=== PATIENT | female | born 1945 | race American Indian/Alaskan Native ===

== ENCOUNTER 2017-07-27 07:18 | Day surgery (SDC) | payer MEDICARE ==
[2017-07-27] MEDS ORDERED: DIPRIVAN 10 MG/ML IV ONE (08:14)
[2017-07-27] MEDS ORDERED: XYLOCAINE MPF 2% ONE (08:30)
--- NOTE | 2017-07-27 08:57 | Anesthesia Consultation ---
Anesthesia Consult and Med Hx Date of service: 07/27/17 - Airway Anesthetic Teeth Evaluation: Poor ROM Head & Neck: Adequate Mental/Hyoid Distance: Adequate Mallampati Class: Class II Intubation Access Assessment: Probably Good - Pulmonary Exam CTA: Yes - Pre-Operative Health Status ASA Pre-Surgery Classification: ASA3 Proposed Anesthetic Plan: MAC - Pre-Anesthesia Comment Pre-Anesthesia Comments: blind - Cardiovascular System Hx Hypertension: Yes Hx Cardia Arrhythmia: Yes (HX Afib ) - Central Nervous System CVA: Yes (denies deficits ) - Gastrointestinal Hx Gastroesophageal Reflux Disease: Yes - Endocrine Hx Non-Insulin Dependent Diabetes: Yes
--- NOTE | 2017-07-27 08:57 | Anesthesia Day of Surgery ---
Anesthesia Day of Surgery - Day of Surgery Patient Examined: Yes Patient H&P Reviewed: Yes Patient is NPO: Yes
--- NOTE | 2017-07-27 08:58 | Discharge Summary ---
Providers - Providers Attending physician: CARMEN NAJERA Primary care physician: VAHID BARRAZA Hospitalization Procedures: egd Hospital course: 71 y.o. F brought to endoscopy for EGD. She has a hx of lap gastric bypass and is having abdominal pain. Her last EGD was in 2014. She tolerated the procedure well today and was discharged home the same day. Disposition: - TO HOME OR SELFCARE Core Measure Documentation - Palliative Care Palliative Care/ Comfort Measures: Not Applicable - Core Measures Any of the following diagnoses?: none Exam - Physical Exam Narrative exam: no change from prior Plan Activity: no restrictions Additional Instructions: follow up in office. Follow up with: VAHID BARRAZA MD [Primary Care Provider] - 7 Days
--- NOTE | 2017-07-27 08:58 | Operative Report ---
Operative Report Operative Report: EGD Post bypass DATE: 07/27/17 OPERATIVE REPORT - EGD PREOP DIAGNOSIS: gastric dyspepsia POSTOP DIAGNOSIS: same SURGERY: Upper endoscopy. SURGEON: Dr. Steven Jackson BIOMETRICIAN: Zahira Sage. DO TYPE OF ANESTHESIA: MAC. ESTIMATED BLOOD LOSS: None. COMPLICATIONS: None. SPECIMENS REMOVED: None. FINDINGS: 1. normal esophagus 2. gastric pouch - 40ml 3. gastrojejunal anastomosis is 25mm INDICATIONS:INDICATION FOR PROCEDURE: Patient is a 71-year-old G s/p gastric bypass in 2001 and a revision in 08/13/2015. The patient is here today for evaluation for due to abdominal pain. The patient is here for a planned EGD for gastric dyspepsia. PROCEDURE DETAILS: After consent was reviewed, patient was taken back to the operating room where patient was placed in the left lateral decubitus position and a bite block was placed in the mouth. After a time-out was called, MAC anesthesia was initiated. I then passed the endoscope into the patients oropharynx, into the esophagus, visualized the entire esophagus, which was all within normal limits. I then visualized the gastric pouch which was normal and about 40ml in size. The gastrojejunal anastomosis was normal at about 20mm. The proximal portion of the catherine limb was normal. At the GJ a possible fistual was noted that extended into the gastric remnant. I then desufflated the gastric pouch and removed the endoscope. Patient tolerated procedure well and was transferred to recovery room in good and stable condition. Her 2 front teeth caps had fallen off during the procedure but no damage to her teeth. The caps were saved for her.
[2017-07-27] MEDS ORDERED: NACL 0.9% 1000 ML 1,000 ML IV SCH (10:00)
[2017-07-27 10:33] VITALS: BP 154/74
--- NOTE | 2017-07-27 13:26 | Progress Note ---
Subjective Date of service: 07/27/17 Interval history: Dr Sage discussed with patient and family front teeth caps were displaced during EGD procedure. Patient stated these were temporary caps and is scheduled for permanent caps to be placed first week in August. Caps recovered with no bleeding noted Objective - Constitutional Vitals: Vital Signs - 12hr 07/27/17 07/27/17 07/27/17 08:35 09:06 09:27 Temperature 97.8 F 97.8 F 97.3 F L Pulse Rate 75 75 70 Respiratory 16 16 16 Rate Blood Pressure 177/78 177/78 126/63 O2 Sat by Pulse 100 100 98 Oximetry 07/27/17 07/27/17 10:12 10:27 Temperature Pulse Rate 78 75 Respiratory 15 15 Rate Blood Pressure 151/79 154/74 O2 Sat by Pulse 98 97 Oximetry
== END 2017-07-27 07:19 | disposition home or self-care (01) ==
LOC: GIO 07:18
PROVIDERS: ATTEND Specialist
DX: R10.13 Epigastric pain (principal); K21.9 Gastro-esophageal reflux disease without esophagitis; I10 Essential (primary) hypertension; I48.91 Unspecified atrial fibrillation; E11.9 Type 2 diabetes mellitus without complications; H54.8 Legal blindness, as defined in USA; Z98.890 Other specified postprocedural states; Z98.0 Intestinal bypass and anastomosis status; Z98.84 Bariatric surgery status; Z86.73 Personal history of transient ischemic attack (TIA), and cerebral infarction without residual deficits
CPT/HCPCS: 43235; J2704; 82962

== ENCOUNTER 2017-08-03 12:50 | Outpatient (CLI) | payer MEDICARE ==
--- NOTE | 2017-08-04 07:44 | Fluoroscopy Report ---
UPPER GI SERIES WITH AIR-CONTRAST HISTORY: Abdominal pain, gastric bypass surgery and revision. FINDINGS: Correlation is made with a report from a recent EGD. Perm[employer] Designer film of the abdomen demonstrates an unremarkable bowel gas pattern. Surgical sutures are noted in the left upper quadrant. Cholecystectomy changes. IVC filter at L2-3. Multiple fluoroscopic images were obtained during ingestion of barium contrast agent. Effervescent granules were added during the second half of the exam. The esophagus is normal caliber. There does appear to be mild, smooth mucosal thickening in the distal esophagus which could represent esophagitis. Occasional episodes of reflux were witnessed during this exam. A small gastric pouch is identified. No internal filling defect is appreciated. No fistula is detected. The anastomosis with the small bowel appears widely patent with no evidence for ulceration. The visualized small bowel loops are widely patent with no mucosal abnormality. Impression: Gastric bypass surgery changes. No fistula or extravasation was demonstrated throughout this exam. Occasional episodes of reflux were witnessed during this exam. Consider mild esophagitis.
== END 2017-08-03 12:51 | disposition home or self-care (01) ==
LOC: FLUORO 12:50
PROVIDERS: ATTEND Specialist
DX: K21.9 Gastro-esophageal reflux disease without esophagitis (principal); Z90.49 Acquired absence of other specified parts of digestive tract; Z98.84 Bariatric surgery status
CPT/HCPCS: 74247

== ENCOUNTER 2017-08-31 07:27 | Day surgery (SDC) | payer MEDICARE ==
[~2017-08-31 07:27] MED LIST: ANCEF/STERILE WATER 2 GM/20 ML 2 GM/20 ML SYRINGE IV NR; APRESOLINE IV PRN; DILAUDID IV PRN; DIPRIVAN 10 MG/ML IV ONE; FLAGYL 500 MG/100 ML 500 MG/100 ML BAG IV NR; LACTATED RINGERS 1,000 ML IV SCH; LOVENOX SUB-Q NR; MARCAINE-EPI 0.5%-1:200,000 INFILTRATI ONE; MORPHINE IV PRN; MYLICON PO PRN; NACL BACTERIOSTATIC INFILTRATI ONE; NORCO PO PRN; REGLAN IV PRN; SUBLIMAZE ONE; TRANSDERM-SCOP TD SCH; XYLOCAINE 1% 20 mL ONE; XYLOCAINE MPF 2% ONE; ZOFRAN IV PRN
[2017-08-31] MEDS ORDERED: PEPCID IV ONE (07:28)
[2017-08-31] MEDS ORDERED: DILAUDID IV PRN ×2 (07:41→11:41)
--- NOTE | 2017-08-31 07:43 | Anesthesia Consultation ---
Anesthesia Consult and Med Hx Date of service: 08/31/17 - Airway Anesthetic Teeth Evaluation: Poor (missing) ROM Head & Neck: Adequate Mental/Hyoid Distance: Adequate Mallampati Class: Class II Intubation Access Assessment: Probably Good - Pulmonary Exam CTA: Yes - Cardiac Exam Cardiac Exam: RRR - Pre-Operative Health Status ASA Pre-Surgery Classification: ASA3 Proposed Anesthetic Plan: General - Cardiovascular System Hx Hypertension: Yes (30 YEARS) Hx Cardia Arrhythmia: Yes (HX Afib ) - Central Nervous System CVA: Yes (2011. no deficits) Hx Back Pain: Yes Hx Psychiatric Problems: No - Gastrointestinal Hx Gastroesophageal Reflux Disease: Yes - Endocrine Hx Non-Insulin Dependent Diabetes: Yes - Hematic Hx Sickle Cell Disease: Yes (TRAIT) - Other Systems Hx Alcohol Use: No Hx Substance Use: No Hx Cancer: No - Additional Comments Anesthesia Medical History Comments: Informed consent obtained
--- NOTE | 2017-08-31 07:43 | Anesthesia Day of Surgery ---
Anesthesia Day of Surgery - Day of Surgery Patient Examined: Yes Patient H&P Reviewed: Yes Patient is NPO: Yes
[2017-08-31 07:48] LABS: INR 1.03 (0.87-1.13)
[2017-08-31] MEDS ORDERED: MARCAINE-EPI 0.5%-1:200,000 INFILTRATI ONE (07:50)
[2017-08-31] MEDS ORDERED: XYLOCAINE 1% 20 mL INFILTRATI ONE (07:50)
[2017-08-31] MEDS ORDERED: NACL 0.9% IR ONE (07:50)
[2017-08-31] MEDS ORDERED: PEPCID IV NR (08:00)
[2017-08-31] MEDS ORDERED: ZOFRAN ONE (08:43)
[2017-08-31] MEDS ORDERED: ROBINUL ONE ×2 (08:43→08:48)
[2017-08-31] MEDS ORDERED: NEOSTIGMINE ONE (08:44)
[2017-08-31] MEDS ORDERED: ZEMURON IV ONE (09:00)
--- NOTE | 2017-08-31 09:12 | Discharge Summary ---
Providers - Providers Date of Admission: 08/31/2017 Date of discharge: 08/31/17 Attending physician: CARMEN NAJERA Primary care physician: VAHID BARRAZA Hospitalization Condition: Stable Procedures: Diagnostic Lap with pérez's space repair and incisional hernia repair Disposition: [id number] TO HOME OR SELFCARE - Discharge Diagnoses (1) Abdominal pain Status: Acute Qualifiers: Abdominal location: epigastric Qualified Code(s): R10.13 - Epigastric pain Core Measure Documentation - Palliative Care Palliative Care/ Comfort Measures: Not Applicable - Core Measures Any of the following diagnoses?: none Exam - Constitutional Vitals: Temp Pulse Resp BP Pulse Ox 97.6 F 76 18 166/90 100 08/31/17 07:20 08/31/17 07:20 08/31/17 07:20 08/31/17 07:20 08/31/17 07:20 General appearance: Present: no acute distress - EENT Eyes: Present: PERRL, EOM intact ENT: hearing intact, clear oral mucosa, dentition normal - Neck Neck: Present: supple, normal ROM - Respiratory Respiratory effort: normal Respiratory: bilateral: CTA - Cardiovascular Rhythm: regular - Extremities Extremities: no ischemia, pulses intact, No edema - Abdominal General gastrointestinal: Present: soft, non-tender, normal bowel sounds Female genitourinary: Present: deferred - Rectal Rectal Exam: deferred - Integumentary Integumentary: Present: clear, warm, dry - Musculoskeletal Musculoskeletal: strength equal bilaterally - Psychiatric Psychiatric: appropriate mood/affect Plan Follow up with: VAHID BARRAZA MD [Primary Care Provider] - 7 Days
[2017-08-31] MEDS ORDERED: S2 RACEPINEPHRINE 2.25% IH ONE ×2 (09:35→12:00)
[2017-08-31] MEDS ORDERED: ATIVAN ONE (09:38)
[2017-08-31 09:39] LABS: Bilirubin,Urine TNR (Negative); Blood,Urine TNR (Negative); Color,Urine TNR (Yellow); Ictotest,Urine TNR (Negative); PH,Urine TNR (5.0-7.0); Protein,Urine TNR mg/dL (Negative); Urobilinogen,Urine TNR mg/dL (<2.0)
[2017-08-31] MEDS ORDERED: DEMEROL ONE (10:00)
--- NOTE | 2017-08-31 10:45 | Post Anesthesia Evaluation ---
- Post Anesthesia Evaluation Patient Participated: Yes Airway Patent: Yes Stable Respiratory Function: Yes Nausea/Vomiting: No Temp > 96.8F: Yes Pain Manageable: Yes Adequeate Hydration: Yes Anesthesia Complications: No Block Receding Appropriately: Not Applicable Patient on Ventilator: No
[2017-08-31] MEDS ORDERED: ATIVAN IV NR (11:33)
[2017-08-31] MEDS ORDERED: DEMEROL IV PRN (12:00)
[2017-08-31] MEDS ORDERED: NORCO 5/325 PO NR (12:35)
[2017-08-31 16:23] VITALS: BP 118/57
[2017-09-01] MEDS ORDERED: LOVENOX SUB-Q SCH (10:00)
== END 2017-08-31 13:50 | disposition home or self-care (01) ==
LOC: OR 07:27
PROVIDERS: ATTEND Specialist
DX: K43.9 Ventral hernia without obstruction or gangrene (principal); K56.690 Other partial intestinal obstruction; I10 Essential (primary) hypertension; I48.91 Unspecified atrial fibrillation; K21.9 Gastro-esophageal reflux disease without esophagitis; E11.9 Type 2 diabetes mellitus without complications; M19.90 Unspecified osteoarthritis, unspecified site; Z86.73 Personal history of transient ischemic attack (TIA), and cerebral infarction without residual deficits; Z98.84 Bariatric surgery status; Z98.890 Other specified postprocedural states; Z83.3 Family history of diabetes mellitus; Z82.49 Family history of ischemic heart disease and other diseases of the circulatory system; Z80.8 Family history of malignant neoplasm of other organs or systems; Z79.899 Other long term (current) drug therapy
CPT/HCPCS: 36415; 49654; 81001; 82962; 85610; 85730; J0690; J1170; J1650; J2060; J2175; J2405; J2704; J2710; J3010; J7120

== ENCOUNTER 2018-01-12 09:05 | Outpatient (CLI) | payer MEDICARE ==
[2018-01-12 10:00] LABS: Blood Urea Nitrogen 10 mg/dL (7-17)
--- NOTE | 2018-01-12 12:27 | Cat Scan Report ---
CT ABDOMEN AND PELVIS WITH CONTRAST INDICATION: Epigastric pain. COMPARISON: None similar. FINDINGS: Abdomen and pelvis CT performed following oral contrast and intravenous administration of 100 cc of Omnipaque 300. LUNG BASES: Nonspecific distal esophageal wall prominence/thickening, not excluded for gastroesophageal reflux and/or approximately 2 cm hiatal hernia, amongst others. Top normal heart size. No effusions. ABDOMEN: Gastric bypass changes and cholecystectomy clips noted. A midline ventral hernia containing fat and small segments of nonobstructed small bowel also noted just supraumbilical with a transverse neck of 3.6 cm on axial image 48, series 2. An IVC filter tip noted at the level of the renal veins. Liver, spleen, left adrenal, aorta and kidneys within normal limits. Approximately 1 cm slightly hypodense nodule along medial limb of the right adrenal, axial image 22, series 2. Partial fatty replacement of the pancreas. Opacified GI tract nonobstructive. No ascites or size significant adenopathy. PELVIS: Hysterectomy. Grossly unremarkable urinary bladder and the rectosigmoid. No free fluid or significant adenopathy. Approximately 2.2 cm bilateral inguinal canal fatty hernia like prominence noted on axial image 81. Multilevel spinal degenerative changes as spurring. Mid to lower lumbar disc degeneration with narrowing and vacuum phenomenon also seen. CONCLUSION: No acute CT abnormality with various findings as iatrogenic/post surgical changes as also a supraumbilical midline ventral hernia containing fat and nonobstructed small bowel, as described. Please correlate. Thank you for the opportunity to participate in this patient's care.
== END 2018-01-12 09:06 | disposition home or self-care (01) ==
LOC: CT 09:05
PROVIDERS: ATTEND Specialist
DX: K43.9 Ventral hernia without obstruction or gangrene (principal); Z90.710 Acquired absence of both cervix and uterus
CPT/HCPCS: 36415; 74177; 82565; 84520; Q9967